=== PATIENT | female | born 1935 | race Hispanic/Latino ===

== ENCOUNTER 2020-08-08 14:55 | Outpatient (CLI) | payer MEDICARE, BC ==
--- NOTE | 2020-08-08 16:14 | BD ---
Exam: DEXA Bone Density 08/08/20 INDICATION: Menopause, osteoporosis screening. FINDINGS: Lumbar Spine: BMD (g/cm2) T-SCORE Z-SCORE L1 0.738 -2.3 not provided L2 0.725 -2.8 not provided L3 0.742 -3.1 not provided L4 0.806 -2.3 not provided L1-L4 0.758 -2.6 Left Femoral Neck: 0.618 -2.1 Left Total Femur: 0.727 -1.8 Impression: Based on WHO criteria, patient's bone mineral density is considered osteoporotic. Patient is a high r isk for fracture. POS: BH
== END 2020-08-08 14:56 | disposition home or self-care (01) ==
LOC: BICMAMMO 14:55
PROVIDERS: ATTEND Nurse Practitioner Family
DX: Z13.820 Encounter for screening for osteoporosis (principal); Z78.0 Asymptomatic menopausal state; M81.0 Age-related osteoporosis without current pathological fracture; M85.852 Other specified disorders of bone density and structure, left thigh
CPT/HCPCS: 77080

== ENCOUNTER 2022-08-28 15:10 | Outpatient (CLI) | payer MEDICARE, BC | END 2022-08-28 15:11 | disposition home or self-care (01) | LOC: BICMAMMO 15:10 | PROVIDERS: ATTEND Family Medicine | DX: Z12.31 Encounter for screening mammogram for malignant neoplasm of breast (principal); M81.0 Age-related osteoporosis without current pathological fracture; N64.89 Other specified disorders of breast | CPT/HCPCS: 77063; 77067; 77080 ==

== ENCOUNTER 2022-09-09 14:54 | Outpatient (CLI) | payer MEDICARE, BC | END 2022-09-09 14:55 | disposition home or self-care (01) | LOC: BICMAMMO 14:54 | PROVIDERS: ATTEND Family Medicine | DX: Z12.31 Encounter for screening mammogram for malignant neoplasm of breast (principal); R92.8 Other abnormal and inconclusive findings on diagnostic imaging of breast | CPT/HCPCS: 77065; G0279 ==